=== PATIENT | female | born 1955 | race Caucasian/White ===

== ENCOUNTER 2020-08-11 21:31 | Emergency (ER) | payer OTHER ==
[~2020-08-11 21:31] MED LIST: ATORVASTATIN CA40 M1 PO; BACDS PO; CIPRO500 MG PO; CLEOCIN HCL300 MG PO; DIA2.5 PO; ECO81 PO; GLU850 PO; LAC PO; METFORMIN HCL1000 MG PO; METFORMIN HCL500 MG PO; MIRUD PO; NORCO1 TA1 PO; ZES10 PO
[2020-08-11 23:04] LABS: BASOPHIL % 0.4 % (0-2); PLATELET COUNT 379 x10^3mcL (130-400)
[2020-08-11 23:07] LABS: CALCIUM 9.1 mg/dL (8.5-10.1); CARBON DIOXIDE 27.3 mmol/L (21-32); POTASSIUM SERUM 4.5 mmol/L (3.5-5.1)
[2020-08-11 23:16] LABS: ALBUMIN 3.8 g/dL (3.4-5.0); BILIRUBIN TOTAL 0.38 mg/dL (0.20-1.00)
[2020-08-12 01:11] VITALS: BP 131/57
== END 2020-08-12 01:11 | disposition home or self-care (01) ==
LOC: ED 21:31
PROVIDERS: Emergency Medicine
DX: R42 Dizziness and giddiness (principal); E86.0 Dehydration; I10 Essential (primary) hypertension; E11.9 Type 2 diabetes mellitus without complications; Z98.890 Other specified postprocedural states
CPT/HCPCS: 82962; J8597